=== PATIENT | female | born 1995 | race Caucasian/White ===

== ENCOUNTER 2020-06-18 06:05 | Emergency (ER) | payer MEDICAID, OTHER ==
[~2020-06-18] VITALS: Ht 167.6 cm; Wt 104.8 kg
[2020-06-18 06:08] VITALS: BP 144/78
[2020-06-18] MEDS ORDERED: KETOROLAC 30 MG/ML VIAL IVP ONE (07:25)
[2020-06-18] MEDS ORDERED: KETOROLAC 15 MG/ML VIAL ONE (07:28)
[2020-06-18 07:48] LABS: BASOPHILS # (AUTO) 0.1 K/uL (0.00-0.22); BASOPHILS % (AUTO) 0.7 % (0.0-2.0); EOSINOPHILS # (AUTO) 0.1 K/uL (0-0.4); EOSINOPHILS % (AUTO) 1.7 % (0.0-4.0); HEMATOCRIT 37.1 % (36-48); HEMOGLOBIN 12.6 g/dL (12.0-16.0); LYMPHOCYTES # (AUTO) 1.7 K/uL (2.5-16.5); LYMPHOCYTES % (AUTO) 21.8 % (20.5-51.1); MEAN CORPUSCULAR HEMOGLOBIN 31 pg (27-31); MEAN CORPUSCULAR HGB CONC 34 g/dL (33-37); MONOCYTES # (AUTO) 0.5 K/uL (0.8-1.0); NEUTROPHILS # (AUTO) 5.3 K/uL (1.8-7.7); NEUTROPHILS % (AUTO) 68.8 % (42.2-75.2); PLATELET COUNT (AUTO) 184 K/uL (140-450); RED BLOOD CELL COUNT(AUTO) 4.03 MIL/uL (4.20-5.40); RED CELL DISTRIBUTION WIDTH 12.8 % (11.6-13.7); WHITE BLOOD COUNT (AUTO) 7.7 K/uL (4.8-10.8)
[2020-06-18 08:14] LABS: ALBUMIN 3.9 g/dL (3.4-5.0); ANION GAP 12.3 (8-16); CARBON DIOXIDE 27.8 mmol/L (21-32); CREATININE 0.8 mg/dL (0.6-1.3); POTASSIUM 4.1 mmol/L (3.5-5.1); TOTAL BILIRUBIN 0.2 mg/dL (0.0-1.0)
[2020-06-18 08:24] LABS: APPEARANCE,URINE CLEAR (CLEAR); BILIRUBIN,URINE NEGATIVE (NEGATIVE); BLOOD, URINE 1+ (NEGATIVE); COLOR,URINE YELLOW (YELLOW); LEUKOCYTE ESTERASE ,URINE TRACE (NEGATIVE); NITRITE, URINE NEGATIVE (NEGATIVE); PH,URINE 6.5 (5.0-9.0); UGLUCOSE NEGATIVE (NEGATIVE)
[2020-06-18 08:41] LABS: RBC,URINE 0-5 /HPF (0-5); WBC,URINE 0-5 /HPF (0-5)
[2020-06-18 09:11] VITALS: BP 121/65
== END 2020-06-18 09:10 | disposition home or self-care (01) ==
LOC: MED 06:05
DX: N89.8 Other specified noninflammatory disorders of vagina (principal); R10.9 Unspecified abdominal pain
CPT/HCPCS: 36415; 76856; 80053; 81001; 84702; 85025; 93976; 96374; 99284; J1885; Q0092

== ENCOUNTER 2020-06-19 05:49 | Emergency (ER) | payer OTHER ==
[~2020-06-19] VITALS: Ht 167.6 cm; Wt 108.4 kg
[2020-06-19 06:02] VITALS: BP 157/97
--- NOTE | 2020-06-19 06:08 | NUR ---
PT TAKEN TO BED 2
--- NOTE | 2020-06-19 06:14 | NUR ---
PT BIB SELF C/O INTERMITENT LOWER ABD CRAMPING X FRIDAY. ABD IS SOFT AND NON-TENDER. PT REPORTS NAUSEA AND STATES THAT SHE MIGHT BE CONSTIPATED, LAST BM 0100 THIS MORNING. PT DENIES FEVER, DYSURIA, VOMITING OR DIARRHEA. PT SEEN HERE YESTERDAY FOR SAME SYMPTOMS, PT RETURNED DUE TO PAIN NOT CONTROLLED BY IBUPROFEN.
[2020-06-19 06:59] LABS: APPEARANCE,URINE CLEAR (CLEAR); BILIRUBIN,URINE NEGATIVE (NEGATIVE); BLOOD, URINE TRACE-I (NEGATIVE); COLOR,URINE YELLOW (YELLOW); LEUKOCYTE ESTERASE ,URINE 1+ (NEGATIVE); NITRITE, URINE NEGATIVE (NEGATIVE); UGLUCOSE NEGATIVE (NEGATIVE)
[2020-06-19 07:03] LABS: RBC,URINE 0-5 /HPF (0-5)
--- NOTE | 2020-06-19 07:22 | NUR ---
REPORT TO THAO ALLEN
[2020-06-19] MEDS ORDERED: KETOROLAC 60 MG/2 ML VIAL IM ONE (07:40)
[2020-06-23 05:04] LABS: CHLAMYDIA TRACHOMATIS AMP DNA POSITIVE (NEGATIVE)
--- NOTE | 2020-06-23 06:32 | NUR ---
Late entry------- pt Chlamydia/GC Am results came back. Dr. Latham notified. advised to call back patient to return to ER for IV Rocephin and Zithromax. 0630- first call attempt made to pt. no success.
== END 2020-06-19 08:30 | disposition home or self-care (01) ==
LOC: MED 05:49
DX: N39.0 Urinary tract infection, site not specified (principal); I51.9 Heart disease, unspecified
CPT/HCPCS: 36415; 81001; 81025; 87086; 96372; 99283; J1885; 87491